=== PATIENT | female | born 1955 | race Caucasian/White ===

== ENCOUNTER 2023-07-03 13:07 | Emergency (ER) | payer MEDICARE, SELFPAY ==
[2023-07-03 13:51] VITALS: BP 133/77; PULSE 95; RESP 18; TEMP 36.7; O2SAT 95; BMI 25.9
--- NOTE | 2023-07-03 14:12 | XR_ITS ---
Patient: JOSTIN STOVER Facility:?[facility] Patient ID:?[id number] Site Patient ID:?[id number]. Site :?[id number] Study:?XRay-Extremity Left WRIST-07/03/2023 2:35:36 PM Ordering Physician:ESVIN Final Report: INDICATION: FOOSH. TECHNIQUE: Left wrist 3 view. COMPARISON: None. FINDINGS: There is an acute nondisplaced fracture of the distal radius. No definite extension to the articular surface. No dislocation. Mild soft tissue swelling about the wrist. IMPRESSION: Acute nondisplaced fracture of the distal radius. Dictated by Sondra Escobar MD @ 07/03/2023 3:58:26 PM Signed by:?Sondra Escobar MD @07/03/2023 3:58:26 PM (Electronic Signature)
[2023-07-03] MEDS: CYCLOBENZAPRINE HCL 10 MG TABLET PO (14:20)
--- NOTE | 2023-07-03 15:35 | ED_ITS ---
HPI - Fall General Chief Complaint: Fall/Minor Trauma Stated Complaint: fall, L wrist injury Time Seen by Provider: 07/03/23 13:51 History of Present Illness HPI Narrative: Fell last night getting ready for bed, states she hit her head on the ground, and her left wrist. Is not on thinners. No LOC. Thinks wrist might be broken, has a cast on it in triage. Patient is very nice lady who fell last night presents here with left wrist pain, she had previously broken wrist is worried she might a broken again she was wearing a wrist splint, with some duct tape around her wrist. She had reports that is no bleeding, she has no numbness tingling weakness she denies any pain to her elbow shoulder or head or neck there is no loss of consciousness with this. complaint: fall Fall from: standing Fall witnessed: no Place fall occurred: home Loss of consciousness: No Prolonged down time: no Symptoms prior to fall: none Context: tripped/slipped Location of injury: other Location of injury - extremities: Left: forearm Severity: moderate Associated symptoms (after fall): denies Related Data Home Medications Medication Instructions Recorded Confirmed insulin glargine 100 unit/mL (3 7 unit subcut QPM 04/26/23 04/26/23 mL) subcutaneous pen (Lantus Solostar U-100 Insulin) insulin lispro 100 unit/mL 3 unit subcut 3XD 04/26/23 04/26/23 subcutaneous pen (Humalog KwikPen (U-100) Insulin) pen needle, diabetic 31 gauge x #100 ea 04/26/23 04/26/23 1/ (Comfort EZ Pen [place]) Previous Rx's Medication Instructions Recorded cyclobenzaprine 5 mg tablet 5 mg PO TID PRN muscle spasm #30 07/03/23 tabs Allergies Allergy/AdvReac Type Severity Reaction Status Date / Time Unable to Assess Allergy Verified 04/26/23 09:15 Review of Systems Status of ROS: Reports: 10 or more systems reviewed and unremarkable except as noted in History and below PFSH PFS Social History Smoking Status: Never smoker Do you use any of these nicotine containing products: None How often do you have a drink containing alcohol: never How often do you have six or more drinks on one occasion: Never AUDIT-C Alcohol total score: 0 Non-prescribed substance use: denies use service: No Exam Narrative: Exam Narrative: On examination there is no deformity noted of her left wrist once I removed the duct tape and the wrist splint. She is able to wiggle her fingers cap refills normal radial and brachial pulses were normal. Sensation is normal over the risks, she is tender over her distal radial area. Elbow has full range of motion of flexion extension supination pronation as does the left shoulder. Her neck is full range of motion also Const: Vital Signs, click to edit/add: Vital Signs - 24 hr 07/03/23 13:51 Temperature 98.1 F Pulse Rate [Right Pulse Oximeter] 95 Respiratory Rate 18 Blood Pressure [Ri ght Upper Arm] 133/77 Pulse Oximetry 95 Oxygen Delivery Me thod Room Air Documenting provider has reviewed patient's vital signs: yes Course Course ED Course: I discussed with her that this is a stable fracture, I think we can get by with a thumb spica splint, and follow up with Orthopedics, she will use some Flexeril, is requesting a prescription for this, and will that this is unreasonable 5 mg p.o. t.i.d. I warned her of the sedation affects of this and other interactions. Vital Signs Vital signs: Initial Vital Signs Temperature 98.1 F 07/03/23 13:51 Temperature Source Temporal Artery Scan 07/03/23 13:51 Pulse Rate 95 07/03/23 13:51 Pulse Rhythm Regular 07/03/23 13:51 Respiratory Rate 18 07/03/23 13:51 Blood Pressure 133/77 07/03/23 13:51 Blood Pressure Mean 95 07/03/23 13:51 Blood Pressure Position Sitting 07/03/23 13:51 Pulse Oximetry 95 07/03/23 13:51 Oxygen Delivery Method Room Air 07/03/23 13:51 Vital Signs Temperature 98.1 F 07/03/23 13:51 Pulse Rate 95 07/03/23 13:51 Respiratory Rate 18 07/03/23 13:51 Blood Pressure 133/77 07/03/23 13:51 Pulse Oximetry 95 07/03/23 13:51 Oxygen Delivery Method Room Air 07/03/23 13:51 Temperature 98.1 F 07/03/23 13:51 Pulse Rate 95 07/03/23 13:51 Respiratory Rate 18 07/03/23 13:51 Blood Pressure 133/77 07/03/23 13:51 Pulse Oximetry 95 07/03/23 13:51 Oxygen Delivery Method Room Air 07/03/23 13:51 Medications Administered Medications: Discontinued Medications Generic Name Dose Route Start Last Admin Trade Name Fernandoq PRN Reason Stop Dose Admin Cyclobenzaprine HCl 10 mg 07/03/23 14:12 07/03/23 14:20 Cyclobenzaprine Hcl 10 Mg Tablet PO 07/03/23 14:13 10 mg ONCE ONE Administration MDM - Fall MDM Narrative Medical decision making narrative: During this evaluation she reported a fall, with less wrist plain, we will do an x-ray to rule out fracture, I do not think there is an element of significant neurologic impairment here. She did not have a history of falling loss of co nsciousness, elbow or shoulder discomfort. She is requesting some cyclobenzaprine which she uses for pain she does not like to use Tylenol, I do not think this is unreasonable we will try this. Medical Records Attestation: I reviewed the patient's medical records. Imaging Data Left wrist: Attestation: I have reviewed the pertinent imaging results. My impression: Distal radial fracture with no displacement or angulation, the distal radial carpal interface is normal. Awaiting radiological over-read Discharge Plan Discharge Clinical Impression: Left radial fracture Patient Disposition: Home, Self-Care Condition: Stable Instructions: Arm Fracture in Adults (ED) Additional Instructions: Home rest splint stays on always, comes off just to clean yourself, follow-up Wednesday through Wednesday with the orthopedic clinic. For recheck, I would use the sling into you see them. You may use the cyclobenzaprine for pain ice is also helpful. Prescriptions: New cyclobenzaprine 5 mg tablet 5 mg PO TID PRN (Reason: muscle spasm) Qty: 30 0RF No Action insulin glargine [Lantus Solostar U-100 Insulin] 100 unit/mL (3 mL) insulin pen 7 unit subcut QPM (DME) pen needle, diabetic [Comfort EZ Pen [place]] 31 gauge x 1/4 needle See Rx Instructions .ROUTE DAILY Qty: 100 Rx Instructions: As directed insulin lispro [Humalog KwikPen Insulin] 100 unit/mL insulin pen 3 unit subcut 3XD Follow Up/Referrals: Good Hobbs MD [Staff Physician] - Ke Delcid MD [Staff Physician] - Roc Crawford MD [Staff Physician] - Provider,Not a Local [Primary Care Provider] - Stand Alone Forms: [facility] Info Instructions
== END 2023-07-03 15:12 | disposition home or self-care (01) ==
PROVIDERS: Emergency Provider Family Medicine
DX: S52.502A Unspecified fracture of the lower end of left radius, initial encounter for closed fracture (principal); W01.0XXA Fall on same level from slipping, tripping and stumbling without subsequent striking against object, initial encounter
CPT/HCPCS: 29125; 73110; 99283; A9270